=== PATIENT | female | born 1955 | race American Indian/Alaskan Native ===

== ENCOUNTER 2017-10-29 06:55 | Day surgery (SDC) | payer OTHER ==
[2017-10-29] MEDS ORDERED: ECOTRIN PO NR (08:28)
[2017-10-29] MEDS ORDERED: NACL 0.9% 500 ML 500 ML IV SCH (09:00)
[2017-10-29 09:13] LABS: Basophils % (Auto) 1.2 % (0.0-1.8); Eosinophils # (Auto) 0.2 K/mm3 (0.0-0.4); Eosinophils % (Auto) 7.3 % (0.0-4.3); Hematocrit 38.7 % (30.3-42.9); Hemoglobin 12.7 gm/dl (10.1-14.3); Lymphocytes # (Auto) 0.9 K/mm3 (1.2-5.4); Mean Corpuscular HGB Conc 33 % (30-34); Mean Corpuscular Hemoglobin 33 pg (28-32); Mean Corpuscular Volume 101 fl (79-97); Monocytes # (Auto) 0.3 K/mm3 (0.0-0.8); Monocytes % (Auto) 10.8 % (0.0-7.3); Platelet Count 139 K/mm3 (140-440); Red Blood Count 3.85 M/mm3 (3.65-5.03); Red Cell Distribution Width 12.9 % (13.2-15.2)
[2017-10-29 09:18] LABS: BUN/Creatinine Ratio 20; Blood Urea Nitrogen 10 mg/dL (7-17); Hemolysis Index 3; INR 0.93 (0.87-1.13)
[2017-10-29] MEDS ORDERED: CALAN ONE (10:28)
[2017-10-29] MEDS ORDERED: HEPARIN 10,000 UNITS/10 ML ONE (10:28)
[2017-10-29] MEDS ORDERED: HEPARIN/NS 5000 UNIT/500ML(CATH LAB) 1,000 ML IR ONE (10:28)
[2017-10-29] MEDS ORDERED: XYLOCAINE 2% INFILTRATI ONE (10:29)
[2017-10-29] MEDS ORDERED: NITROGLYCERIN SYRINGE 3 ML ONE (10:29)
[2017-10-29] MEDS ORDERED: SUBLIMAZE ONE (10:30)
[2017-10-29] MEDS ORDERED: VERSED ONE (10:30)
--- NOTE | 2017-10-29 13:14 | Short Stay Summary ---
Short Stay Documentation Date of service: 10/29/17 - History H&P: obtained from office - Allergies and Medications Current Medications: Allergies No Known Allergies Allergy (Unverified 10/29/17 06:56) Home Medications Medication Instructions Recorded Confirmed Last Taken Type Carvedilol [Coreg] 12.5 mg PO BID 10/29/17 10/29/17 10/29/17 06:00 History Lisinopril [Zestril] 20 mg PO QDAY 10/29/17 10/29/17 10/29/17 06:00 History Active Medications Sodium Chloride (Nacl 0.9% 500 Ml) 500 mls @ 50 mls/hr IV DIRECT BELÉN Stop: 10/29/17 18:59 Last Admin: 10/29/17 09:30 Dose: 50 mls/hr - Brief post op/procedure progress note Date of procedure: 10/29/17 Pre-op diagnosis: abnormal stress test Post-op diagnosis: same Procedure: LHC - see cath report Anesthesia: local Estimated blood loss: none Condition: stable - Disposition Condition at discharge: Stable Disposition: DC-01 TO HOME OR SELFCARE - Discharge Diagnoses (1) Abnormal stress test Status: Chronic (2) LBBB (left bundle branch block) Status: Chronic (3) Dilated cardiomyopathy Status: Chronic (4) Chronic systolic heart failure Status: Chronic (5) HTN (hypertension) Status: Chronic (6) Hyperlipidemia Status: Chronic (7) Obesity Status: Chronic Short Stay Discharge Plan Activity: advance as tolerated Diet: low fat, low cholesterol, low salt Wound: open to air, keep clean and dry, per your surgeon's advice Additional Instructions: Make follow appointment with in 7 days [phone] Follow up with: [facility] [Other] - 7 Days COCO WASHINGTON MD [Staff Physician] - 7 Days Forms: CardCath PCI D/C Instructions, Post Sedation D/C Instructions
[2017-10-29 14:03] VITALS: BP 158/78
--- NOTE | 2017-10-30 00:01 | Cardiac Catherization Report ---
REFERRING PHYSICIAN: Dr. Varela INDICATION FOR PROCEDURE: The patient is a pleasant 62-year-old -Thai female with a history of cardiomyopathy, left bundle branch block and abnormal nuclear stress test, referred for left heart catheterization. Risks, benefits, and potential alternatives explained at length prior to obtaining informed consent. PROCEDURE IN DETAIL: The patient was brought to the catheterization lab in a postabsorptive state, prepped and draped in sterile fashion. Tony's test in right hand was normal. A 2 mL of 2% lidocaine used to anesthetize the right wrist. A standard 6-Luxembourger hydrophilic sheath used to cannulate the right radial artery via modified Seldinger technique. All exchanges performed to exchange a J-tip guidewire. JL3.5 catheter used to engage left main. No dampening or ventricularization. Cineangiography performed in all projections. JR4 catheter used to cross the aortic valve under fluoroscopic guidance. Left ventriculography performed in 30 EUBANKS and 30 BAHAMIAN projections via hand injections, catheter flushed. Manual pullback performed with continuous pressure monitoring. Catheter used to engage the right coronary. No dampening or ventricularization. Cineangiography performed in all projections. Catheter removed from the body of wire, sheath removed. Manual pressure used to achieve hemostasis. No complications. SEDATION START TIME: 10:50 a.m. END TIME: 11:10 a.m. I directly supervised the administration of moderate sedation during the above time with administration of fentanyl and Versed. DATA: Aortic pressure is 170/80, LV pressure is 170, LVP of 20 mmHg. Left ventriculography revealed severe global left ventricular hypokinesis with an estimated ejection fraction of 30-35%. No evidence of aortic stenosis, high normal LVEDP. CORONARY ANATOMY: This is a right dominant system. Right coronary is a moderate to large vessel, courses AV groove, distally bifurcates in the posterior descending, posterolateral branches. No discrete stenosis identified. Left main is a large vessel. Left anterior descending and left circumflex large vessels without significant disease. Left main is without significant disease. Mild ectasia noted in the proximal LAD and proximal left circumflex. VIOLETA 3 flow throughout. No obstructive disease identified. CONCLUSIONS: 1. No angiographic evidence of significant epicardial coronary artery disease in this right dominant system. 2. Mildly dilated and severely globally hypokinetic left ventricle with estimated ejection fraction of 30-35%. 3. High normal LVEP. 4. Systemic arterial hypertension. 5. No evidence of aortic stenosis. At this point, recommend aggressive blood pressure control, risk factor modification, salt reduction. The patient has a severe dilated nonischemic cardiomyopathy, which apparently is newly identified. Follow up with Dr. Varela in the office. Results of the procedure explained to the patient and family. All questions and concerns were addressed. JOB# [id number] BETSY/NTS
== END 2017-10-29 14:00 | disposition home or self-care (01) ==
LOC: CATHLABREC 06:55
PROVIDERS: ATTEND Internal Medicine
DX: I44.7 Left bundle-branch block, unspecified (principal); I11.0 Hypertensive heart disease with heart failure; I50.22 Chronic systolic (congestive) heart failure; I42.9 Cardiomyopathy, unspecified; E78.5 Hyperlipidemia, unspecified; E66.01 Morbid (severe) obesity due to excess calories; Z68.43 Body mass index [BMI] 50.0-59.9, adult
CPT/HCPCS: 36415; 80048; 85025; 85610; 85730; 93005; 93010; 93458; 99156; C1894; J1644; J2250; J3010; J7040; Q9967